=== PATIENT | female | born 1965 | race Hispanic/Latino ===

== ENCOUNTER 2017-07-10 13:14 | Emergency (ER) | payer BC ==
[2017-07-10 13:17] VITALS: BMI 27.2
[2017-07-10 13:24] VITALS: TEMP 98.5
[2017-07-10 13:25] VITALS: RESP 16; O2SAT 100
[2017-07-10] MEDS ORDERED: Sodium Chloride 0.9% 1,000 ML IV STA (13:40)
--- NOTE | 2017-07-10 13:55 | ED PDOC ---
Arrival/HPI - General Chief Complaint: Syncope Time Seen by Provider: 07/10/17 13:18 Historian: Patient - History of Present Illness Narrative History of Present Illness (Text): 07/10/17 13:40 51 year old female, whose past medical history includes anxiety, osteoporosis, and hypotension, was brought in by Krishan and presents to the emergency department complaining of syncopal episode. Patient reports she has been experiencing fatigue and heat. 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 After she was done with one of her classes, she went to the office to see if she could fix the air conditioning, and the assistant corporate secretary recommended she take an ice pack for relief. After picking up the ice pack, she suddenly was being seen by the school nurse, whom told her she passed out. Patient notes also experiencing dizziness, but denies of any fever, nausea, vomiting, abdominal pain, chest pain, shortness of breath, weakness of extremities, or any other complaints. PMD: Dr. Plascencia Time/Duration: > week (few days) Symptom Onset: Gradual Symptom Course: Unchanged Past Medical History - Provider Review Nursing Documentation Reviewed: Yes - Infectious Disease Hx of Infectious Diseases: None - Tetanus Immunization Tetanus Immunization: Unknown - Cardiac Hx Hypotension: Yes - Pulmonary Hx Respiratory Disorders: No - Neurological Hx Dizziness: Yes Hx Headaches: Yes - HEENT Hx HEENT Disorder: No - Renal Hx Renal Disorder: No - Endocrine/Metabolic Hx Endocrine Disorders: No - Hematological/Oncological Hx Blood Transfusions: No - Integumentary Hx Dermatological Disorder: No - Musculoskeletal/Rheumatological Hx Musculoskeletal Disorders: Yes (LEFT TORN MENISCUS) Hx Osteoporosis: Yes - Gastrointestinal Hx Gastrointestinal Disorders: Yes (GASTRIC BYPASS) Hx Gall Bladder Disease: Yes (CHOLECYSTECTOMY) - Genitourinary/Gynecological Hx Genitourinary Disorders: Yes (HYSTERECTOMY) Hx Cervical Cancer: Yes - Psychiatric Hx Depression: Yes Hx Substance Use: No - Surgical History Hx Cholecystectomy: Yes Hx Hysterectomy: Yes Hx Tonsillectomy: Yes Other/Comment: Menisectomy (left knee), 2012 - Anesthesia Hx Anesthesia: Yes Hx Anesthesia Reactions: No Hx Malignant Hyperthermia: No - Suicidal Assessment Feels Threatened In Home Enviroment: No Family/Social History - Physician Review Nursing Documentation Reviewed: Yes Family/Social History: No Known Family HX Smoking Status: Never Smoked Hx Alcohol Use: No Hx Substance Use: No Allergies/Home Meds Allergies/Adverse Reactions: Allergies No Known Allergies Allergy (Verified 06/25/13 11:18) Home Medications: Home Meds Medication Instructions Recorded Confirmed Calcium/Vitamin D [Oyster Shell 1 tab PO DAILY 05/14/16 07/10/17 Calcium/Vitamin D 500 mg-200 IU] Multivitamin [One Daily] 1 tab PO DAILY 05/14/16 07/10/17 clonazePAM [clonAZEPAM] 0.5 mg PO TID 05/14/16 07/10/17 Fludrocortisone [Florinef] 07/10/17 Review of Systems - Physician Review All systems were reviewed & negative as marked: Yes - Review of Systems Constitutional: Fatigue. absent: Fevers Respiratory: absent: SOB Cardiovascular: Syncope. absent: Chest Pain Gastrointestinal: absent: Abdominal Pain, Nausea, Vomiting Neurological: Dizziness. absent: Focal Weakness (no weakness of extremities) Physical Exam Vital Signs Reviewed: Yes Vital Signs Temp Pulse Resp BP Pulse Ox 07/10/17 15:02 68 121/65 07/10/17 13:24 98.5 F 71 18 136/67 98 Temperature: Afebrile Blood Pressure: Normal Pulse: Regular Respiratory Rate: Normal Appearance: Positive for: Well-Appearing Pain Distress: None Mental Status: Positive for: Alert and Oriented X 3 - Systems Exam Head: Present: Atraumatic, Normocephalic Pupils: Present: PERRL Conjunctiva: Present: Normal Mouth: Present: Moist Mucous Membranes Pharnyx: Present: Normal. No: ERYTHEMA, EXUDATE Neck: Present: Normal Range of Motion Respiratory/Chest: Present: Clear to Auscultation, Good Air Exchange. No: Respiratory Distress, Accessory Muscle Use Cardiovascular: Present: Regular Rate and Rhythm, Normal S1, S2. No: Murmurs Abdomen: Present: Normal Bowel Sounds. No: Tenderness, Distention, Peritoneal Signs Back: Present: Normal Inspection Upper Extremity: Present: Normal Inspection. No: Cyanosis, Edema Lower Extremity: Present: Normal Inspection. No: Edema Neurological: Present: GCS=15, CN II-XII Intact, Speech Normal Skin: Present: Warm, Dry, Normal Color. No: Rashes Psychiatric: Present: Alert, Oriented x 3, Normal Insight, Normal Concentration Medical Decision Making ED Course and Treatment: 07/10/17 13:46 Impression: 51 year old female with syncopal episode, dizziness, and fatigue. She has had multiple syncopal episodes in the past with no cardiogenic or neurogenic etiology discerned. She has a history of hypotension, which is the presumed cause of it in the past. Differential Diagnosis included but are not limited to: Hypotension vs dehydration vs cardiac vs neurologic. Plan: -- EKG -- Brain CT -- Labs -- Urinalysis -- Tylenol -- IV Fluids -- Reassess and disposition Prior Visits: Notes and results from previous visits were reviewed. Patient was last seen in the emergency department on 07/27/2014 for migraine headaches. Patient was admitted. Progress Notes: 07/10/2017 14:[address] IMPRESSION: No nintracranial hemorrhage or mass effect. Most of the calvarium is included with the exception of a few mm of the anterior frontal bone and minimally portions of the nasal bone. These are the best possible images obtainable at this setting at this time. Should additional imaging be obtained and I am made aware of that, an addendum can be issued. Dictator: Monica Alejandra 07/10/17 15:08 Labs, EKG, and exam are unremarkable as is head CT - patient feeling better; no indication for admission by SF Syncope rule as well as previous negative workup - ok for d/c to f/u pmd. - Lab Interpretations Lab Results: 07/10/17 14:05 07/10/17 14:05 Lab Results 07/10/17 14:41: Urine Color Yellow, Urine Appearance Clear, Urine pH 7.0, Ur Specific [place] 1.010, Urine Protein Negative, Urine Glucose (UA) Negative, Urine Ketones Negative, Urine Blood Negative, Urine Nitrate Negative, Urine Bilirubin Negative, Urine Urobilinogen 0.2, Ur Leukocyte Esterase Trace H, Urine RBC Negative, Urine WBC 0 - 2 07/10/17 14:05: Sodium 142, Potassium 3.8, Chloride 102, Carbon Dioxide 31, Anion Gap 13, BUN 13, Creatinine 0.7, Est GFR ( Amer) > 60, Est GFR (Non- Af Amer) > 60, Random Glucose 106, Calcium 9.2, Magnesium 2.1, Total Bilirubin 0.4, AST 31, ALT 29, Alkaline Phosphatase 74, Lactate Dehydrogenase 477, Total Creatine Kinase 53, Troponin I < 0.01, Total Protein 6.6, Albumin 4.2, Globulin 2.4, Albumin/Globulin Ratio 1.8 07/10/17 14:05: WBC 5.3, RBC 4.17, Hgb 12.8, Hct 36.7, MCV 88.0, MCH 30.7, MCHC 34.9, RDW 12.3, Plt Count 260, MPV 9.5, Gran % 42.8 L, Lymph % (Auto) 48.7 H, [place] % (Auto) 7.0 H, Eos % (Auto) 1.1 L, Baso % (Auto) 0.4, Gran # 2.27, Lymph # 2.6, [place] # 0.4, Eos # 0.1, Baso # 0.02 I have reviewed the lab results: Yes - RAD Interpretation Radiology Orders: 07/10/17 13:40 Brain [HEAD W/O CONTRAST] [CT] Stat - Medication Orders Current Medication Orders: Discontinued Medications Acetaminophen (Tylenol 325mg Tab) 975 mg PO STAT STA Stop: 07/10/17 13:41 Last Admin: 07/10/17 13:57 Dose: 975 mg MAR Pain/Vitals Document 07/10/17 13:57 SRE (Rec: 07/10/17 13:57 SRE [id number]) Pain Reassessment Is This A Pain ReAssessment? Yes Sleep Is patient sleeping during reassessment? No Presence of Pain Presence of Pain Yes Pain Scale Used Pain Scale Used Numeric Location Pain Location Body Log Clerk Description Intermittent Sodium Chloride (Sodium Chloride 0.9%) 1,000 mls @ 999 mls/hr IV .Q1H1M STA Stop: 07/10/17 14:40 Last Admin: 07/10/17 13:55 Dose: 999 mls/hr eMAR Start Stop Document 07/10/17 13:55 SRE (Rec: 07/10/17 13:57 SRE [id number]) Intravenous Solution Start Date 07/10/17 Start Time 13:56 End Date 07/10/17 End time 15:00 Total Infusion Time 64 - Scribe Statement The provider has reviewed the documentation as recorded by the Bebo Murillo Provider Scribe Attestation: All medical record entries made by the Aleksandribsylvia were at my direction and personally dictated by me. I have reviewed the chart and agree that the record accurately reflects my personal performance of the history, physical exam, medical decision making, and the department course for this patient. I have also personally directed, reviewed, and agree with the discharge instructions and disposition. Disposition/Present on Arrival - Present on Arrival Any Indicators Present on Arrival: No History of DVT/PE: No History of Uncontrolled Diabetes: No Urinary Catheter: No History of Decub. Ulcer: No History Surgical Site Infection Following: None - Disposition Have Diagnosis and Disposition been Completed?: Yes Diagnosis: Syncope Disposition: HOME/ ROUTINE Disposition Time: 15:10 Patient Plan: Discharge Condition: GOOD Discharge Instructions (ExitCare): Syncope (ED) Additional Instructions: Drink plenty of fluids. Continue your fludrocortisone daily. Follow up with your primary care doctor. Return to the emergency department if any new concerning symptoms. Referrals: Samuel Plascencia DO [Primary Care Provider] - Follow up with primary Forms: [employer] (Lithuanian)
[2017-07-10 14:16] LABS: BASO # 0.02 K/mm3 (0.0-2.0); BASO % 0.4 % (0.0-3.0); EOS # 0.1 (0.0-0.7); EOS % 1.1 % (1.5-5.0); GRAN # 2.27 (1.4-6.5); GRAN % 42.8 % (50.0-68.0); HEMATOCRIT 36.7 % (36.0-48.0); LYMPH # 2.6 (1.2-3.4); LYMPH % 48.7 % (22.0-35.0); MEAN CORPUSCULAR HEMOGLOBIN 30.7 pg (25.0-35.0); MEAN CORPUSCULAR HGB CONC 34.9 g/dl (31.0-37.0); MEAN PLATELET VOLUME 9.5 fl (7.0-11.0); MONO # 0.4 (0.1-0.6); RED CELL DISTRIBUTION WIDTH 12.3 % (11.5-14.5); WHITE BLOOD COUNT 5.3 10^3/ul (4.5-11.0)
[2017-07-10 14:24] LABS: ALB/GLOB RATIO 1.8 (1.1-1.8); ALKALINE PHOSPHATASE 74 U/L (38-126); ALT/SGPT 29 U/L (7-56); AST/SGOT 31 U/L (14-36); BILIRUBIN,TOTAL 0.4 mg/dL (0.2-1.3); BLOOD UREA NITROGEN 13 mg/dL (7-21); CALCIUM 9.2 mg/dL (8.4-10.5); CARBON DIOXIDE 31 mmol/L (21-33); CHLORIDE 102 mmol/L (98-107); GFR AFRICAN-AMERICAN > 60; GLUCOSE,RANDOM 106 mg/dL (70-110); MAGNESIUM 2.1 mg/dL (1.7-2.2); POTASSIUM 3.8 mmol/L (3.6-5.0); SODIUM 142 mmol/L (132-148); TOTAL PROTEIN 6.6 g/dL (5.8-8.3)
[2017-07-10 14:36] LABS: TROPONIN I < 0.01 ng/mL
[2017-07-10 14:53] LABS: URINE BILIRUBIN NEGATIVE (NEGATIVE); URINE BLOOD NEGATIVE (NEGATIVE); URINE GLUCOSE (UA) NEGATIVE (NEGATIVE); URINE KETONE NEGATIVE (NEGATIVE); URINE LEUKOCYTE ESTERASE TRACE Leu/uL (NEGATIVE); URINE PROTEIN NEGATIVE mg/dL (<30 mg/dL); URINE UROBILINOGEN 0.2 E.U./dL (<1 E.U./dL)
--- NOTE | 2017-07-10 14:53 | CT ---
PROCEDURE: CT HEAD WITHOUT CONTRAST. HISTORY: headache, syncope, possible head injury COMPARISON: None available. TECHNIQUE: Axial computed tomography images were obtained through the head/brain without intravenous contrast. Radiation dose: Total exam DLP = 942 mGy-cm. This CT exam was performed using one or more of the following dose reduction techniques: Automated exposure control, adjustment of the mA and/or kV according to patient size, and/or use of iterative reconstruction technique. These are the best possible images obtainable at this setting FINDINGS: HEMORRHAGE: No intracranial hemorrhage. BRAIN: No mass effect or edema. No atrophy or chronic microvascular ischemic changes. VENTRICLES: Unremarkable. No hydrocephalus. CALVARIUM: Most of the calvarium is visualize. Only a few mm of the most anterior portion of the calvarium and nose are not visually included on this exam. These are the best possible images at this time. Should additional imaging be obtained in [facility] aware of it and addendum can be issued PARANASAL SINUSES: Unremarkable as visualized. No significant inflammatory changes. MASTOID AIR CELLS: Unremarkable as visualized. No inflammatory changes. OTHER FINDINGS: None. IMPRESSION: No intracranial hemorrhage or mass effect. Most of the calvarium is included with the exception of a few mm of the anterior frontal bone and minimally portions of the nasal bone. These are the best possible images obtainable at this setting at this time. Should additional imaging be obtained and I am made aware of that, an addendum can be issued
[2017-07-10 14:55] LABS: URINE APPEARANCE CLEAR (CLEAR); URINE COLOR YELLOW (YELLOW)
[2017-07-10 15:00] LABS: URINE RBC NEGATIVE /hpf (0-2); URINE WBC 0 - 2 /hpf (0-6)
[2017-07-10 15:03] VITALS: BP 121/65; PULSE 68
--- NOTE | 2017-07-11 08:43 | CARD ---
APPROVED REPORT EKG Measurement Heart [id number] <Conclusion> Normal sinus rhythm Normal ECG No change
== END 2017-07-10 15:22 | disposition home or self-care (01) ==
LOC: ED 13:14
DX: R55 Syncope and collapse (principal); I95.9 Hypotension, unspecified
CPT/HCPCS: 70450; 80053; 81001; 82550; 83615; 83735; 84484; 85025; 87086; 93005; 96360; 99285; J7040